=== PATIENT | male | born 1975 | race Caucasian/White ===

== ENCOUNTER 2017-01-02 10:00 | Emergency (ER) | payer SELFPAY ==
[~2017-01-02 10:00] MED LIST: BACDS PO; FLEX PO; I40 PO; LORTAB 5 PO; NAP500 PO; NORV5 PO; ZOL50 PO; ZOLOFT25 MG PO
== END 2017-01-02 10:57 | disposition home or self-care (01) ==
LOC: ER 10:00
DX: M17.11 Unilateral primary osteoarthritis, right knee (principal); I10 Essential (primary) hypertension; F31.9 Bipolar disorder, unspecified; F41.9 Anxiety disorder, unspecified; F17.200 Nicotine dependence, unspecified, uncomplicated; Z79.899 Other long term (current) drug therapy; X50.1XXA Overexertion from prolonged static or awkward postures, initial encounter
CPT/HCPCS: 73560-RT; 99283; A9270-GY